=== PATIENT | female | born 2000 | race Caucasian/White ===

== ENCOUNTER 2023-11-03 13:10 | Outpatient (REF) | payer BC, SELFPAY ==
[2023-11-03 15:38] LABS: Hemoglobin A1C 5.4 % (<5.7)
== END 2023-11-03 13:11 | disposition home or self-care (01) ==
LOC: NCHCN 13:10
PROVIDERS: Referring Provider Physician Assistant; Visit Provider Physician Assistant
DX: R73.03 Prediabetes (principal)
CPT/HCPCS: 83036

== ENCOUNTER 2025-05-05 17:22 | Outpatient (REF) | payer OTHER, SELFPAY ==
[2025-05-07 11:48] LABS: Bacterial Vaginosis (BV) Negative (Negative); Candida glabrata Negative (Negative); Candida species group Negative (Negative)
== END 2025-05-05 17:23 | disposition home or self-care (01) ==
LOC: NCHCN 17:22
PROVIDERS: PCP Internal Medicine; Visit Provider Internal Medicine
DX: N89.8 Other specified noninflammatory disorders of vagina (principal)
CPT/HCPCS: 81513; 87481; 87661